=== PATIENT | male | born 1970 | race Caucasian/White ===

== ENCOUNTER 2017-01-07 04:07 | Observation (INO) | payer OTHER ==
[2017-01-07 04:47] LABS: #Basophils 0.1 thou/uL (0.0-0.2); #Eosinphils 0.1 thou/uL (0.0-0.7); #Lymphocytes 3.2 thou/uL (1.20-3.40); #Monocytes 0.4 thou/uL (0.11-0.59); #Neutrophils 4.1 thou/uL (1.40-6.50); %Basophils 0.7 % (0.0-1.0); %Eosinophils 1.5 % (0.0-10.0); %Lymphocytes 40.8 % (21.0-51.0); %Monocytes 5.3 % (0.0-10.0); Hematocrit 49.4 % (42.0-52.0); Mean Platelet Volume 7.6 fL (7.4-10.4); Red Blood Cell (RBC) Count 5.45 mill/uL (4.70-6.10); White Blood Cell (WBC) Count 7.8 thou/uL (4.8-10.8)
[2017-01-07 05:06] LABS: ALT (SGPT) 43 U/L (8-55); AST (SGOT) 24 U/L (5-34); Alkaline Phosphatase 54 U/L (40-150); Anion Gap 12 mmol/L (10-20); BUN (Urea Nitrogen) 28 mg/dL (8.9-20.6); Bilirubin, Total 1.6 mg/dL (0.2-1.2); Calc. Creatinine Clearance 0 mL/min (70-130); Calcium 9.4 mg/dL (7.8-10.44); Carbon Dioxide 28 mmol/L (22-29); Chloride 103 mmol/L (98-107); Estimated GFR-MDRD 76; Globulin 3.2 g/dL (2.4-3.5); Protein, Total 7.5 g/dL (6.0-8.3)
[2017-01-07] MEDS ORDERED: Promethazine HCl 25 MG/ML VIAL ONE (06:21)
[2017-01-07] MEDS ORDERED: Ketorolac Tromethamine 30 MG/ML VIAL ONE (06:21)
--- NOTE | 2017-01-07 08:04 | ULT ---
ULTRASOUND GALLBLADDER RIGHT UPPER QUADRANT: HISTORY: Abdominal pain. COMPARISON: None. FINDINGS: The visualized portion of the pancreas is unremarkable. Hepatic echotexture is normal. The liver m easures 13.6 cm in length. The portal vein is patent with antegrade flow. The common bile duct measures 4 mm. The right kidney measures 12.8 x 6.4 x 5.8 cm without mass, hydronephrosis, or abnormal calcificatio ns. The gallbladder has been previously removed. IMPRESSION: Unremarkable exam. Prior cholecystectomy. POS: CHARISSA
[2017-01-07 08:24] VITALS: BMI 33.9
[2017-01-07] MEDS ORDERED: Promethazine HCl 12.5 MG, Admixture Fee 1 EACH in Sodium Chloride 0.9% 50 ML IVPB PRN (08:35)
[2017-01-07] MEDS ORDERED: Ondansetron ODT 4 MG TAB PO PRN (08:36)
[2017-01-07] MEDS ORDERED: Ondansetron HCl/PF 4 MG/2 ML Vial IVP PRN ×2 (08:36→11:45)
[2017-01-07] MEDS ORDERED: Morphine 10 MG/ML VIAL SLOW IVP PRN (08:36)
[2017-01-07] MEDS ORDERED: Acetaminophen 325 MG TAB PO PRN ×2 (08:37→11:45)
[2017-01-07] MEDS ORDERED: FLU VACC QS2017-18 36 mo. & older 0.5 ML SYRINGE IM ONE (08:45)
[2017-01-07] MEDS ORDERED: Sodium Chloride 0.9% 1,000 ML IV SCH (08:45)
[2017-01-07] MEDS ORDERED: Mag-Al 1200 mg/1200 mg/30 ML UDCUP PO PRN (11:45)
[2017-01-07] MEDS ORDERED: Ketorolac Tromethamine 30 MG/ML VIAL IVP PRN (11:45)
--- NOTE | 2017-01-07 13:34 | CON ---
DATE OF CONSULTATION: 01/07/2017 GI INPATIENT CONSULTATION NOTE REQUESTING PHYSICIAN: Andrea Katz M.D. REASON FOR CONSULTATION: Right chest and upper abdomen pain, consider ERCP. HISTORY OF PRESENT ILLNESS: Arpan Nava is a 46-year-old man who was transferred here from [facility] for consideration of possible ERCP. Mr. Nava reports that back in 08/2014, he was having pa in on the right side of the abdomen and ended up undergoing cholecystectomy. It sounds like there w as some surgical complications as he had an extended hospitalization for over 9 days after the surge ry with J tube remaining in place. He says he did not have any reoperation. Does not recall having an ERCP, so he was not sure what the nature of this was, but it sounds like he might have had a true e leak and peritonitis . At any rate, after discharge from the hospital, he continued to have pain in his right side and this has continued in an episodic fashion for the past couple of years since . He reports having gone to multiple gastrointestinal providers in [place] and [place] as well as jayda in [place] for evaluation. He has had MRCPs and EGDs which he said were normal. He saw Dr Terrence montelongo in [place] at [facility], [place] and says capsule endoscopy and ERCP were both planned, b ut he did not go through with this yet. He says that everytime he presents, his imaging always appe ars normal and laboratory testing is all unremarkable except for some mild elevation of total biliru bin, and indeed that is the case this time. This current episode has been lasting for several days. He has had nausea and couple of episodes of emesis. There has been no change in normal bowel move ments. He says his episodes will last up to 5-7 days, they highly variable in their intensity, some times mild, sometimes more severe. Dietary changes really seem to have no effect on the discomfort and it seems to come on randomly. Upon initial evaluation in [place], CBC and CMP were both norm al with the exception of total bilirubin of 1.4. He was transferred here when abdominal ultrasound is normal with a normal common bile duct post-cholecystectomy state and labs are all normal includin g lipase and total bilirubin is mildly elevated at 1.6, but all other LFTs are normal. Patient wond ers if he might have sphincter of Oddi dysfunction type 3 and whether he should undergo ERCP or not. REVIEW OF SYSTEMS: Full review of systems including constitutional, head, eyes, ears, nose, throat, GI, , cardiovascular, respiratory, musculoskeletal, and neurologic systems is negative except as noted in the HPI. PAST MEDICAL HISTORY: Cholecystectomy, 08/2014; chronic right-sided pain. ALLERGIES: REGLAN and LATEX. OUTPATIENT MEDICATION: Alprazolam 1 mg daily. INPATIENT MEDICATIONS: Zofran p.r.n., Toradol p.r.n., Pepcid 20 mg daily. FAMILY HISTORY: Noncontributory. SOCIAL HISTORY: Nonsmoker. PHYSICAL EXAMINATION: VITAL SIGNS: Temperature 98.1, pulse 50, blood pressure 117/72, 100% oxygen saturation on room air. GENERAL: A 46-year-old white man lying in bed comfortably in no distress. SKIN: No jaundice, no rash visible or palpable. EYES: No scleral icterus. Extraocular movements intact. ENT: Mucous membranes moist, no oral lesions. LYMPH: No submandibular or supraclavicular lymphadenopathy. THYROID: Nontender to palpation. HEART: Regular rate and rhythm. LUNGS: Clear to auscultation bilaterally. ABDOMEN: Bowel sounds are present, nondistended, soft, nontender to palpation throughout. No jo s or organomegaly appreciated. The patient points to the very lateral right lower ribcage as the lo cation of his pain and says it really does not radiate from there, but that area is not tender to pa lpation. EXTREMITIES: No peripheral edema. VESSELS: Radial pulses 2+ bilaterally. NEUROLOGICAL: Cranial nerves II-XII intact bilaterally. No focal deficits. LABORATORY STUDIES: WBC 7.8, hemoglobin 16.5, platelets 218, BUN 28, creatinine 1.05, total bilirub in 1.6, alkaline phosphatase 54, AST 24, ALT 43, albumin 4.3, and lipase 28. IMAGING STUDIES: CTA abdomen and pelvis performed yesterday at [place] was evidently negative. Abdominal ultrasound performed earlier today here showed normal common bile duct 4 mm, otherwise nor mal postcholecystectomy ultrasound. ASSESSMENT AND PLAN: 1. Right upper quadrant pain, really this seems more like right lower chest discomfort. 2. History of cholecystectomy with possible postoperative bile leak over 2 years ago. 3. Nausea and vomiting. The patient seems to have undergone fairly extensive workup already includ ing CT and ultrasound imaging as well as essentially negative laboratory workup. The mild elevation of total bilirubin is likely not related to his pain at all. He may have Gilbert syndrome. Regard ing the pain itself, I think it is most likely he probably just has developed chronic somatic pain i n the area following what sounds like an episode of bile peritonitis after his cholecystectomy a cou ple of years ago. I see no evidence of any ongoing bile leak or any structural abnormality. Ultras ound shows no biliary dilation and evidently prior magnetic resonance cholangiopancreatography was a lso normal. He wonders about the possibility of sphincter of Oddi dysfunction, and I would say ther e is a low to moderate probability of this. I certainly would not perform endoscopic retrograde cho langiopancreatography with sphincterotomy at this time. Evidently, this was contemplated with his travon montelongo at [facility], [place] along with capsule endoscopy. I am not sure capsule endoscopy is going to give any helpful information, at any rate this cannot be performed on an inpatient basis h ere. I frankly discussed with the patient that I would not perform endoscopic retrograde cholangiopancrea tography at this time. If he would like to speak with Dr. [facility] again regarding endoscopic retrograde cholangiopancreatography with possible sphincter of Oddi manometry, then he should follow up with those physicians in [place]. For now, I would just treat symptomatically, advance diet as tolerated and discharge when appropriate from the hospitalist/pain management standpoint. No GI trevor gnostics planned at this time. Thank you for the consultation. Please call back with questions or concerns.
--- NOTE | 2017-01-07 13:38 | HP ---
REASON FOR ADMISSION: Right lower chest wall pain, questionable right upper quadrant pain. HISTORY OF PRESENT ILLNESS: The patient was transferred from [facility] for possible ERCP here. He has history of right lower lateral chest wall pain with mild right upper quadrant pain as well. These are associated with diaphoresis and diarrhea. He has had nearly 2-3 loose stools. He thinks he feels like he still has a gallbladder, although he has had cholecystectomy done. The patient has had these pains for quite some time now almost more than a year. He has had history of laparoscopic cholecystectomy done in August of 2014 in [facility]. Subsequently, the patient had some complications and had a J-tube for 5 days and was removed after that. He has had off and on pain and has in fact had an MRCP done one and a half years ago with upper endoscopy in [facility] which was apparently normal. He has also met Dr. Pastor, food and beverage controller at [facility] who apparently suggested him to have ERCP last September, but the patient has never followed up with him. Currently , he has no complaints of left-sided chest pain, fever, or palpitations. PAST MEDICAL/SURGICAL HISTORY: Prior cholecystectomy done in 08/2014, right meniscal tear, and anxiety. CURRENT MEDICATIONS: Takes L[place]y p.r.n. and alprazolam p.r.n. ALLERGIES: LATEX and REGLAN. PERSONAL HISTORY: Does not abuse alcohol or drugs. No history of smoking. FAMILY HISTORY: The patient grew up in an orphanage and does not know much about his biological parents. Power of insurance attorney is his . CODE STATUS: FULL. The patient works as a domestic travel consultant in [place] and he is also teaching faculty at [employer] REVIEW OF SYSTEMS: The following complete review of systems was negative, unless otherwise mentioned in the HPI or below: Constitutional: Weight loss or gain, ability to conduct usual activities. Skin: Rash, itching. Eyes: Double vision, pain. ENT/Mouth: Nose bleeding, neck stiffness, pain, tenderness. Cardiovascular: Palpitations, dyspnea on exertion, orthopnea. Respiratory: Shortness of breath, wheezing, cough, hemoptysis, fever or night sweats. Gastrointestinal: Poor appetite, abdominal pain, heartburn, nausea, vomiting, constipation, or diarrhea. Genitourinary: Urgency, frequency, dysuria, nocturia. Musculoskeletal: Pain, swelling. Neurologic/Psychiatric: Anxiety, depression. Allergy/Immunologic: Skin rash, bleeding tendency. PHYSICAL EXAMINATION: GENERAL: The patient is a 46-year-old male who is currently is not in any distress. VITAL SIGNS: Blood pressure 142/86, pulse 62 per minute, respiratory rate 20 per minute, temperature 97.6 degrees Fahrenheit, and saturating 96% on room air. NECK: Supple, no elevated JVD. HEENT: Extraocular muscles intact. Pupils are reacting to light. Oral cavity , mucous membranes are moist. No exudates or congestion. CARDIOVASCULAR: S1, S2 heard. Regular rhythm. RESPIRATORY: Air entry 2+ bilateral. No rales or rhonchi. ABDOMEN: Soft. There is mild tenderness with deep palpation in the right upper quadrant. No rigidity or guarding, no rebound tenderness. EXTREMITIES: No peripheral edema or calf tenderness. VASCULAR SYSTEM: Peripheral pulses 2+ bilateral, no ischemic ulcerations or gangrene. CENTRAL NERVOUS SYSTEM: No gross focal deficits seen. The patient is alert, awake, and oriented x3. PSYCHIATRIC: The patient's mood is euthymic. No hallucinations or delusions. LABORATORY FINDINGS: Labs done at [facility] shows white count of 9, H \T\H 17 and 50, and platelet count 230. Electrolytes are stable. BUN 29, creatinine 0.9, total bilirubin was 1.4, AST 29, ALT 51, alkaline phosphatase 54 , lipase was 28. Repeat labs done here more or less similar. He has had a CT of the abdomen and pelvis done at [facility] which apparently was within normal limits per ER physician. Abdominal was unremarkable with common bile duct 4 mm, visualize portion of the pancreas was unremarkable, portal vein was patent with antegrade flow, no hydronephrosis was seen in the right kidney. CLINICAL IMPRESSION AND PLAN: I have discussed the above lab findings with the patient. I have told him there is no indication for endoscopic retrograde cholangiopancreatography. The patient nevertheless would like to meet a food and beverage controller. I have discussed his findings with Dr. Denny Stubbs, who just come and evaluated the patient and there is no indication for endoscopic retrograde cholangiopancreatography. He is advised to follow up with Dr. Pastor , food and beverage controller at [facility] at his convenience. He is hemodynamically stable and will be shortly discharged if CT angio chest is negative for pulmonary embolism. This is in view of right lower chest wall pain. He has received Toradol 15 mg IV q.6 hourly p.r.n. for pain. This will be a same day admit and discharge under observation. Addendum: CTA chest was -ve for PE/infiltrate. MTDD
[2017-01-07 15:33] VITALS: BP 115/84; TEMP 97.8
[2017-01-07] MEDS ORDERED: Iopamidol 370 76% 100 ML VIAL ONE (15:42)
--- NOTE | 2017-01-07 17:08 | CT ---
CT ANGIOGRAM THORAX WITH IV CONTRAST AND 3D RECONSTRUCTIONS: History: Right lower chest pain and rib pain. Comparison: None available. FINDINGS: No filling defects are seen in the pulmonary arteries to suggest a pulmonary embolus. The thoracic s pine is normal in caliber without evidence of an aortic dissection. Lungs are clear aside from minim al dependent atelectasis bilaterally. Mediastinal structures have a normal appearance. Post-surgical change related to cholecystectomy are noted. IMPRESSION: No CT evidence of pulmonary embolus. POS: CHARISSA
[2017-01-07] MEDS ORDERED: Famotidine 20 MG TAB PO SCH (21:00)
== END 2017-01-07 17:13 | disposition home or self-care (01) ==
LOC: ERS 04:07 → 2SW 06:37
PROVIDERS: ADMIT Internal Medicine; ATTEND Internal Medicine
DX: R10.11 Right upper quadrant pain (principal); R07.89 Other chest pain; R11.2 Nausea with vomiting, unspecified; Z91.040 Latex allergy status; Z88.8 Allergy status to other drugs, medicaments and biological substances; Z79.899 Other long term (current) drug therapy; Z90.49 Acquired absence of other specified parts of digestive tract
CPT/HCPCS: 36415; 71275; 76705; 80053; 85025; 96365; 96375; 96376; A4216; G0378; J1885; J2270; J2550